=== PATIENT | male | born 1975 | race Caucasian/White ===

== ENCOUNTER 2023-12-27 10:09 | Outpatient (AMB) | payer OTHER, SELFPAY ==
--- NOTE | 2023-12-27 10:11 | A.OFFPC_ITS ---
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 Jack Operator Required: No Allergies No Known Allergies Allergy (Verified 12/27/23 10:15) Medication List - Last Reconciled 12/27/23 by Alpesh Reed MD fluoxetine 20 mg PO DAILY lactobacillus combination no.4 (Probiotic) 3,000 mmu cells PO DAILY lamotrigine 200 mg PO DAILY Tobacco use date assessed: 12/27/23 Dental Screening Dental Screen Date: 12/27/23 Did you have a dental visit in the last 12 months?: Yes Did you have a dental problem in the last 6 months where you did not have access to dental care?: No Was dental information given to patient?: Patient has dentist HPI Re-Establish Care last seen 2018 ([facility]) HPI Details 48-year-old male with a history of recur rent depression coming in for the 1st time. Patient was last seen more than a couple of years ago. 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 no stopping of work while chest pain - gerd problem [facility] Medical History (Updated 12/27/23 @ 10:44 by Alpesh Reed MD) Polysubstance abuse Surgical History (Updated 12/27/23 @ 10:31 by Alpesh Reed MD) Left inguinal hernia Family History (Updated 12/27/23 @ 10:36 by Alpesh Reed MD) Maternal Grandfather Esophageal cancer Social History (Updated 12/27/23 @ 10:40 by Alpesh Reed MD) Housing: House Alcohol intake: current Comment: 3x a year 1 glass Patient Tobacco Use Status: Former Tobacco user Tobacco use type: Cigarette Years Smoked: 10 years 2009 no recreational drugs e-Cigarette/Vaping Use: Never Used service: No Current occupational status: employed Current occupation: Cognitive needs: No Hearing needs: No Vision needs: No Questionnaire PHQ-9 Over the last 2 weeks, how often have you been bothered by any of the following problems? 1. Little interest or pleasure in doing things: several days 2. Feeling down, depressed, or hopeless: more than half the days 3. Trouble falling or staying asleep, or sleeping too much: not at all 4. Feeling tired or having little energy: several days 5. Poor appetite or overeating: more than half the days 6. Feeling bad about yourself - or that you are a failure or have let yourself or your family down: not at all 7. Trouble concentrating on things, such as reading the newspaper or watching television: several days 8. Moving or speaking so slowly that other people could have noticed. Or the opposite - being so fidgety or restless that you have been moving around a lot more than usual: not at all 9. Thoughts that you would be better off or of hurting yourself in some way: not at all Total score: 7 Depression Screening Interpretation: Positive Depression Screening Done: Yes 34054 - PHQ-9 Billing: Yes Source: Developed by Drs. Gavin Luna, Lindy Burkett, Moose Bhatt and colleagues, with an educational noa from [employer]. Thrive Questionnaire Date Thrive assessed: 12/27/23 I am a: Patient What is your living situation today?: I have a steady place to live Within the past 12 months, did the food you bought not last and you didn't have the money to get more?: Never true Within the past 12 months, did you worry whether your food would run out before you got money to buy more?: Never true Do you have trouble paying for medicines?: No Do you have trouble getting transportation to medical appointments?: No Do you have trouble paying your heating and electricity bill?: No Do you have trouble taking care of your child, family member or friend?: No Do you have trouble with day-to-day activities such as bathing, preparing meals, shopping, managing finances, etc.?: No Are you currently unemployed and looking for a job?: No Are you interested in more education?: No Please select the resources that you would like help with: None Currently or been in a relationship where the following occur: no concerns reported THRIVE Score: 0 AUDIT C Alcohol Use Questionnaire (AUDIT-C) 1. How often do you have a drink containing alcohol?: Monthly or less 2. How many drinks containing alcohol do you have on a typical day when you are drinking?: 1 or 2 3. How often do you have six or more drinks on one occasion?: Never Total Score: 1 LUX-7 AMB Questionnaire LUX-7 Date LUX - 7 assessed: 12/27/23 Feeling nervous, anxious, or on edge: 0 = Not at all Not being able to stop or control worryin = Not at all Worrying too much about different things: 0 = Not at all Trouble relaxin = Not at all Being so restless that it is hard to sit still: 0 = Not at all Becoming easily annoyed or irritable: 0 = Not at all Feeling afraid as if something awful might happen: 0 = Not at all Total LUX-7 score (0-4 normal; 5-9 mild; 10-14 moderate; 15-21 severe): 0 Source: Developed by Drs. Gavin Luna, Lindy Burkett, Moose Bhatt and colleagues, with an educational noa from [employer]. Physical exam (Primary Care) Vital Signs: Last Vital Signs Pulse 82 12/27/23 10:12 BP 110/78 12/27/23 10:12 Pulse Ox 99 12/27/23 10:12 Oxygen Delivery Method Room Air 12/27/23 10:12 BMI result Body Mass Index 22.0 Tobacco/Smoking Status: Tobacco use Status Tobacco use date assessed 12/27/23 12/27/23 10:13 Patient Tobacco Use Status Former Tobacco user 12/27/23 10:22 Tobacco use type Cigarette 12/27/23 10:22 e-Cigarette/Vaping Use Never Used 12/27/23 10:22 PHQ-9: PHQ-9 Score PHQ-9: Total score 7 12/27/23 10:22 Depression Screening Interpretation: Positive Thrive Assessment: Date of Thrive Assessment Date Thrive assessed 12/27/23 12/27/23 10:13 Currently or been in a relationship where the following occur: no concerns reported Const General: alert; No acute distress Eyes Conjunctivae: conjunctivae normal Resp Auscultation: clear to auscultation bilaterally Cardio Rate: regular rate Rhythm: regular rhythm GI Inspection: Yes normal to inspection Extrem General: Yes normal to inspection and No edema Assessment and Plan Assessment & Plan (1) Recurrent major depression: Code(s): F33.9 - Major depressive disorder, recurrent, unspecified (2) GERD (gastroesophageal reflux disease): Code(s): K21.9 - Gastro-esophageal reflux disease without esophagitis (3) Left inguinal hernia: Comment: With repair Code(s): K40.90 - Unilateral inguinal hernia, without obstruction or gangrene, not specified as recurrent (4) Colon cancer screening: Code(s): Z12.11 - Encounter for screening for malignant neoplasm of colon (5) Vision changes: Code(s): H53.9 - Unspecified visual disturbance (6) Palpitations: Code(s): R00.2 - Palpitations Orders: Orders Complete Blood Count Auto Diff Today R00.2 - Palpitations Free T4 (Free Thyroxine) Today R00.2 - Palpitations Lipid Panel Today E78.00 - Pure hypercholesterolemia, unspecified, R00.2 - Palpitations Vitamin B12 and Folate Today R00.2 - Palpitations ECG 12 lead EKG Today R00.2 - Palpitations XR chest 2V Today R00.2 - Palpitations Comprehensive Met. Panel Today R00.2 - Palpitations Thyroid Stimulating Hormone Today R00.2 - Palpitations Referrals Gastroenterology Referral K21.9 - Gastro-esophageal reflux disease without esophagitis, Z12.11 - Encounter for screening for malignant neoplasm of colon Ophthalmology Referral H53.9 - Unspecified visual disturbance Medications: New omeprazole 20 mg PO DAILY 30 caps 1RF K21.9 - Gastro-esophageal reflux disease without esophagitis Coding Level of Care Code New Pt Level 4 (95093) Diagnoses Recurrent major depression F33.9 GERD (gastroesophageal reflux disease) K21.9 Left inguinal hernia K40.90 Colon cancer screening Z12.11 Vision changes H53.9 Palpitations R00.2
[2023-12-27 10:12] VITALS: BP 110/78; PULSE 82; O2SAT 99; BMI 22.0
== END 2023-12-27 10:56 | disposition home or self-care (01) ==
PROVIDERS: PCP Internal Medicine; Visit Provider Internal Medicine
DX: F33.9 Major depressive disorder, recurrent, unspecified (principal); K21.9 Gastro-esophageal reflux disease without esophagitis; K40.90 Unilateral inguinal hernia, without obstruction or gangrene, not specified as recurrent; Z12.11 Encounter for screening for malignant neoplasm of colon; R00.2 Palpitations; Z01.00 Encounter for examination of eyes and vision without abnormal findings
CPT/HCPCS: 99204

== ENCOUNTER 2024-06-03 08:35 | Outpatient (REF) | payer OTHER, SELFPAY ==
--- NOTE | 2024-06-03 08:39 | ECG_ITS ---
Test Reason : R00.2 Blood Pressure : / mmHG Vent. Rate : 082 BPM Atrial Rate : 082 BPM P-R Int : 150 ms QRS Dur : 104 ms QT Int : 350 ms P-R-T Axes : 079 -53 052 degrees QTc Int : 408 ms Normal sinus rhythm Incomplete right bundle branch block Left anterior fascicular block Possible Anterior infarct , age undetermined Abnormal ECG No previous ECGs available Referred By: Alpesh Reed Electronically Signed By:JAMAL DE LA PAZ MD
[2024-06-03 08:59] LABS: MANUAL DIFF FLAG NO
[2024-06-03 09:25] LABS: Basophils Absolute Auto 0.1 X10*3/uL (0.0-0.2); Basophils Percent Auto 1.4 % (0-2); Eosinophils Absolute Auto 0.1 X10*3/uL (0.0-0.4); Hematocrit 44.6 % (42.0-52.0); Hemoglobin 15.8 g/dl (14.0-18.0); Imm Gran Abs Auto 0.02 X10*3/uL (0.00-0.03); Imm Gran Pct Auto 0.4 % (0.0-0.4); Lymphocytes Absolute Auto 1.4 X10*3/uL (1.2-4.9); Lymphocytes Percent Auto 24.2 % (20-40); Mean Corpuscular HGB Conc 35.4 g/dl (31.0-36.0); Mean Corpuscular Hemoglobin 32.2 pg (27.0-33.0); Mean Corpuscular Volume 90.8 fL (80.0-98.0); Mean Platelet Volume 9.1 fL (9.4-12.4); Monocytes Absolute Auto 0.4 X10*3/uL (0.1-1.2); Monocytes Percent Auto 7.2 % (2-11); Neutrophils Absolute Auto 3.6 x10*3/uL (2.0-8.3); Neutrophils Percent Auto 64.8 % (45-73); Platelet Count 302 X10*3/uL (160-400); Red Blood Count 4.91 X10*6/uL (4.60-5.80); Red Cell Distribution Width 12.4 % (11.0-16.0); White Blood Count 5.6 X10*3/uL (4.8-10.8)
[2024-06-03 09:58] LABS: Alanine Aminotransferase 31 U/L (0-40); Albumin Level 4.9 g/dL (3.5-5.0); Alkaline Phosphatase 77 U/L (39-117); Anion Gap 15 (12-20); Aspartate Amino Transferase 33 U/L (5-37); Bilirubin Total 0.7 mg/dL (0.0-1.0); Blood Urea Nitrogen 10 mg/dL (9-16); Calcium 10.1 mg/dL (8.4-10.2); Carbon Dioxide 29 mmol/L (22-29); Chloride 104 mmol/L (96-108); Cholesterol 194 mg/dL (<200); Estimated Glomerular Filt Rate > 60; Glucose Random 94 mg/dL (60-115); HDL Cholesterol 72 mg/dL (>40); LDL Cholesterol Calculated 111 mg/dL (<100); Potassium 4.8 mmol/L (3.3-5.1); Sodium 143 mmol/L (135-145); Total Protein 7.4 g/dL (6.5-8.0); Triglycerides 57 mg/dL (<150)
[2024-06-03 10:42] LABS: Free T4 (Free Thyroxine) 1.18 ng/dL (0.71-1.85); Thyroid Stimulating Hormone 0.91 uIU/mL (0.32-4.0)
[2024-06-03 10:45] LABS: Folate 7.5 ng/mL (> or = 4.0); Vitamin B12 391 pg/mL (200-900)
== END 2024-06-03 08:36 | disposition home or self-care (01) ==
LOC: HO.LAB 08:35
PROVIDERS: PCP Internal Medicine; Visit Provider Internal Medicine
DX: R00.2 Palpitations (principal); E78.00 Pure hypercholesterolemia, unspecified
CPT/HCPCS: 36415; 71046; 80053; 80061; 82607; 82746; 84439; 84443; 85025; 93005

== ENCOUNTER → 2024-06-03 08:39 | Outpatient (BNV) | payer OTHER, SELFPAY | PROVIDERS: PCP Internal Medicine; Visit Provider Internal Medicine Cardiovascular Disease | DX: R94.31 Abnormal electrocardiogram [ECG] [EKG] (principal) | CPT/HCPCS: 93010 ==

== ENCOUNTER 2024-06-04 11:04 | Outpatient (AMB) | payer OTHER, SELFPAY ==
[2024-06-04 11:25] VITALS: BP 132/70; PULSE 80; O2SAT 98; BMI 21.6
--- NOTE | 2024-06-04 11:25 | A.OFFPC_ITS ---
Vital Signs 06/04/24 11:25 Height 5 ft 7 in Weight 62.596 kg BMI 21.6 BP 132/70 Blood Pressure Location Lt brachial Position Sitting Pulse 80 Pulse Source Pulse Oximeter Pulse Oximetry (%) 98 Oxygen Delivery Method Room Air Intake Visit Reasons: PE Intake Note: pt requesting omeprazole refill Bulk System Operator Required: No Accompanied by: Self / Same As Patient Allergies No Known Allergies Allergy (Verified 06/04/24 11:25) Medication List - Last Reconciled 06/04/24 by Alpesh Reed MD fluoxetine 20 mg PO DAILY lactobacillus combination no.4 (Probiotic) 3,000 mmu cells PO DAILY lamotrigine 200 mg PO DAILY omeprazole 20 mg PO DAILY Tobacco use date assessed: 12/27/23 Dental Screening Dental Screen Date: 12/27/23 HPI PE HPI Details 49-year-old male with depression GERD co bird in for physical exam last seen in November 2023. occ dizzy PFSH Medical History (Updated 06/04/24 @ 12:00 by Alpesh Reed MD) Polysubstance abuse Surgical History (Updated 12/27/23 @ 10:31 by Alpesh Reed MD) Left inguinal hernia Family History (Updated 12/27/23 @ 10:36 by Alpesh Reed MD) Maternal Grandfather Esophageal cancer Social History (Updated 06/04/24 @ 12:01 by Alpesh Reed MD) Housing: House Alcohol intake: current Comment: 3x a year 1 glass, 2x a year 1 drink Patient Tobacco Use Status: Former Tobacco user Tobacco use type: Cigarette Years Smoked: 10 years 2009 no recreational drugs e-Cigarette/Vaping Use: Never Used service: No Current occupational status: employed Current occupation: Cognitive needs: No Hearing needs: No Vision needs: No Questionnaire PHQ-9 Over the last 2 weeks, how often have you been bothered by any of the following problems? 1. Little interest or pleasure in doing things: nearly every day 2. Feeling down, depressed, or hopeless: nearly every day 3. Trouble falling or staying asleep, or sleeping too much: nearly every day 4. Feeling tired or having little energy: more than half the days 5. Poor appetite or overeating: nearly every day 6. Feeling bad about yourself - or that you are a failure or have let yourself or your family down: more than half the days 7. Trouble concentrating on things, such as reading the newspaper or watching television: nearly every day 8. Moving or speaking so slowly that other people could have noticed. Or the opposite - being so fidgety or restless that you have been moving around a lot more than usual: not at all 9. Thoughts that you would be better off or of hurting yourself in some way: not at all Total score: 19 Source: Developed by Drs. Gavin Luna, Lindy Burkett, Moose Bhatt and colleagues, with an educational noa from [employer]. Thrive Questionnaire Date Thrive assessed: 12/27/23 I am a: Patient What is your living situation today?: I have a steady place to live Within the past 12 months, did the food you bought not last and you didn't have the money to get more?: Never true Within the past 12 months, did you worry whether your food would run out before you got money to buy more?: Never true Do you have trouble paying for medicines?: No Do you have trouble getting transportation to medical appointments?: No Do you have trouble paying your heating and electricity bill?: No Do you have trouble taking care of your child, family member or friend?: No Do you have trouble with day-to-day activities such as bathing, preparing meals, shopping, managing finances, etc.?: No Are you currently unemployed and looking for a job?: No Are you interested in more education?: No Please select the resources that you would like help with: None Currently or been in a relationship where the following occur: No concerns reported THRIVE Score: 0 AUDIT C Alcohol Use Questionnaire (AUDIT-C) 1. How often do you have a drink containing alcohol?: Monthly or less 2. How many drinks containing alcohol do you have on a typical day when you are drinking?: 1 or 2 3. How often do you have six or more drinks on one occasion?: Never Total Score: 1 LUX-7 AMB Questionnaire LUX-7 Date LUX - 7 assessed: 12/27/23 Feeling nervous, anxious, or on edge: 3 = Nearly every day Not being able to stop or control worryin = Nearly every day Worrying too much about different things: 3 = Nearly every day Trouble relaxin = Nearly every day Being so restless that it is hard to sit still: 1 = Several days Becoming easily annoyed or irritable: 3 = Nearly every day Feeling afraid as if something awful might happen: 3 = Nearly every day Total LUX-7 score (0-4 normal; 5-9 mild; 10-14 moderate; 15-21 severe): 19 Source: Developed by Drs. Gavin Luna, Lindy Burkett, Moose Bhatt and colleagues, with an educational noa from [employer]. Review of Systems Const Denies poor appetite and Denies weakness Eyes Denies no additional complaints ENT Reports Normal hearing present, Denies dizziness, Denies nasal congestion, Denies tinnitus and Denies sore throat Card Denies chest pain, Denies syncope, Denies rapid heart rate and Denies dyspnea Resp Denies cough and Denies dyspnea GI Denies change in stool character, Reports constipation, Denies diarrhea, Denies nausea and Denies vomiting Denies dysuria and Denies urinary frequency Neuro Reports Normal hearing present, Denies confusion, Denies dizziness, Denies syncope and Denies weakness Psych Denies confusion Physical exam (Primary Care) Vital Signs: Last Vital Signs Pulse 80 06/04/24 11:25 BP 132/70 06/04/24 11:25 Pulse Ox 98 06/04/24 11:25 Oxygen Delivery Method Room Air 06/04/24 11:25 BMI result Body Mass Index 21.6 Tobacco/Smoking Status: Tobacco use Status Tobacco use date assessed 12/27/23 06/04/24 11:26 Patient Tobacco Use Status Former Tobacco user 06/04/24 12:01 Tobacco use type Cigarette 06/04/24 12:01 e-Cigarette/Vaping Use Never Used 06/04/24 12:01 PHQ-9: PHQ-9 Score PHQ-9: Total score 19 06/04/24 11:58 Thrive Assessment: Date of Thrive Assessment Date Thrive assessed 12/27/23 06/04/24 11:26 Currently or been in a relationship where the following occur: No concerns reported Const General: No confusion Orientation/consciousness: No confusion HENMT Head: Yes normocephalic Ears: external ears normal and TM's normal bilaterally Face and sinus: Yes normal facial exam Mouth: moist mucous membranes Throat: Yes tonsils normal Eyes Conjunctivae: conjunctivae normal Pupils: Equal, round and reactive pupils present and Pupil accommodation reflex normal Direct Ophthalmoscopy: normal light reflex Neck Neck: No lymphadenopathy Thyroid: Thyroid normal Chest Chest palpation & inspection: normal inspection of the chest Resp Effort & Inspection: normal respiratory effort and no audible wheezes Auscultation: clear to auscultation bilaterally Cardio Rate: regular rate Rhythm: regular rhythm Peripheral pulses: radial pulses present and dorsalis pedis present GI Other: guaaic negative prostate n Inspection: Yes normal to inspection Palpation (GI): no masses Auscultation: normal bowel sounds and normoactive bowel sounds Male General Exam: Yes normal external exam Skin General skin exam: no rashes or lesions noted Rashes: no rashes Neuro General: No confusion Cranial nerves: Yes Equal, round and reactive pupils present and Yes Normal hearing present Cognition (Neuro): normal cognition Gait exam (Neuro): Normal gait present Motor exam (neuro): 5/5 motor strength present throughout Deep tendon reflexes (DTR's): Right brachioradialis reflex intensity grade: 2+, Left brachioradialis reflex intensity grade: 2+, Right patellar reflex intensity grade: 2+ and Left patellar reflex intensity grade: 2+ Extrem General: Yes normal to inspection and No edema Office Procedures Flu Questionnaire Does the patient have a severe egg allergy?: No Does the patient have severe life threatening allergies?: No Does the patient have a fever or illness today?: No Has the patient ever had Guillain-T[place] Syndrome?: No Has the patient ever had any past reaction to a flu shot?: No Immunizations Fluarix Triv [id number] (PF) 45 mcg (15 mcg x 3)/0.5 mL IM syringe Performing Provider: Alpesh Reed MD [facility] Administered by: Elmira Patel CMA on 06/04/24 12:18 Dose Route Admin Location Dispensed Lot Number Expiration Date [facility] Community Relations Assistant 0.5 mL IM Left Deltoid 0.5 mL [id number] 01/25/25 [id number] [employer] VIS Given Date VIS Provided VIS Publication Date 06/04/24 Single Vaccine 21 Eligibility Eligibility Date Funding Source Not [place] Eligible 06/04/24 Private Coding Level of Care Code Est Pt Prev Care 40-64y(40309) Diagnoses Annual physical exam Z00.00 Moderate episode of recurrent major depressive disorder F33.1 Active/Remission status: currently active Major depression episode severity: moderate Gastroesophageal reflux disease without esophagitis K21.9 Esophagitis presence: without esophagitis Assessment & Plan Assessment & Plan (1) Annual physical exam: Code(s): Z00.00 - Encounter for general adult medical examination without abnormal findings Category: Medical Plan: Patient is advised to eat healthy, keep well hydrated, keep active and have adequate sleep. (2) Recurrent major depression: Comment: Private Psychiatry and counselling Code(s): F33.9 - Major depressive disorder, recurrent, unspecified Category: Medical Qualifiers: Active/Remission status: currently active Major depression episode severity: moderate Qualified Code(s): F33.1 - Major depressive disorder, recurrent, moderate Plan: Continue with present medication (3) GERD (gastroesophageal reflux disease): Code(s): K21.9 - Gastro-esophageal reflux disease without esophagitis Category: Medical Qualifiers: Esophagitis presence: without esophagitis Qualified Code(s): K21.9 - Gastro-esophageal reflux disease without esophagitis Plan: Avoid the foods that causes that usually spicy foods, tomato products, juices, coffee, soda and foods that your sensitive to. After eating do not lie down, allow 3-4 hours before in lie down. And keep the head of bed above 30 degrees to avoid the acid from going up. Orders: Orders Influenza [id number] Immunization Today Z23 - Encounter for immunization Medications: New Fluarix Triv [id number] (PF) (flu vacc [id number] 6mos up(PF)) 0.5 mL IM ONCE 0.5 mL 0RF NS Z23 - Encounter for immunization
== END 2024-06-04 12:23 | disposition home or self-care (01) ==
LOC: HO.HMCH 11:05
PROVIDERS: PCP Internal Medicine; Visit Provider Internal Medicine
DX: Z00.00 Encounter for general adult medical examination without abnormal findings (principal); F33.1 Major depressive disorder, recurrent, moderate; K21.9 Gastro-esophageal reflux disease without esophagitis; Z23 Encounter for immunization

== ENCOUNTER → 2024-06-04 11:04 | Outpatient (BNVA) | payer OTHER, SELFPAY | PROVIDERS: PCP Internal Medicine; Visit Provider Internal Medicine | DX: Z00.00 Encounter for general adult medical examination without abnormal findings (principal); F33.1 Major depressive disorder, recurrent, moderate; K21.9 Gastro-esophageal reflux disease without esophagitis; Z79.899 Other long term (current) drug therapy; Z23 Encounter for immunization | CPT/HCPCS: 90471; 90656; 96127 ==

== ENCOUNTER 2024-10-07 09:53 | Outpatient (REF) | payer OTHER, SELFPAY ==
[2024-10-07 11:43] LABS: Hematocrit 44.1 % (42.0-52.0); Hemoglobin 15.3 g/dl (14.0-18.0); Mean Corpuscular HGB Conc 34.7 g/dl (31.0-36.0); Mean Corpuscular Hemoglobin 31.5 pg (27.0-33.0); Mean Corpuscular Volume 90.7 fL (80.0-98.0); Platelet Count 343 X10*3/uL (160-400); Red Blood Count 4.86 X10*6/uL (4.60-5.80); Red Cell Distribution Width 12.4 % (11.0-16.0); White Blood Count 7.2 X10*3/uL (4.8-10.8)
[2024-10-07 12:35] LABS: Hepatitis A Antibody IgG Nonreactive (Nonreactive); ~Hepatitis A Antibody IgG 0.14 S/CO (0.00-0.99)
[2024-10-07 12:39] LABS: Alanine Aminotransferase 27 U/L (0-40); Albumin Level 4.6 g/dL (3.5-5.0); Alkaline Phosphatase 82 U/L (39-117); Aspartate Amino Transferase 30 U/L (5-37); Bilirubin Direct 0.2 mg/dL (0.0-0.5); Bilirubin Total 0.8 mg/dL (0.0-1.0); Total Protein 7.5 g/dL (6.5-8.0)
[2024-10-07 13:09] LABS: HBS Num1 1.63 mIU/mL (0-7.99); HBc Num1 0.04 S/CO (0.00-0.79); HBsAGNum1 0.23 S/CO (0.00-0.99); Hepatitis B Core Antibody Nonreactive (Nonreactive); Hepatitis B Surface Antigen Negative (Negative); ~HepC Num1 0.11 S/CO (0.00-0.79); ~Hepatitis B Surface Antibody NONREACTIVE (Nonreactive); ~Hepatitis C Antibody Nonreactive (Nonreactive)
== END 2024-10-07 09:54 | disposition home or self-care (01) ==
LOC: HO.LAB 09:53
PROVIDERS: PCP Internal Medicine; Visit Provider Internal Medicine
DX: R10.9 Unspecified abdominal pain (principal)
CPT/HCPCS: 36415; 80076; 85027; 86704; 86706; 86708; 86803; 87340

== ENCOUNTER 2024-10-07 09:53 | Outpatient (AMB) | payer OTHER, SELFPAY ==
[2024-10-07 09:55] VITALS: BP 142/86; PULSE 100; BMI 22.1
--- NOTE | 2024-10-07 09:55 | MHC.OFFVIS ---
Vital Signs 10/07/24 09:55 Height 5 ft 7 in Weight 141 lb 1.533 oz BMI 22.1 BP 142/86 H Blood Pressure Location Lt brachial Position Sitting Pulse 100 Intake Visit Reasons: Gerd Intake Note: Evangelista presents in the office as a new patient for GERD. CC: He states that he has been having a lot of abdominal discomfort with acid reflux. Denies any irregular bowel movements. Break Up Worker Required: No Allergies No Known Allergies Allergy (Verified 10/07/24 09:55) HPI Comments Details: 49 y.o M referred by PCP for abd pain and CRC screening. Reports abd pain is kika-umbilical, x 6 months. Starts typically within 2 hours after meals, feels like a pressure, gnawing sensation. Sometimes radiates to R back. Sometimes with bloating. Not assoc with N,V,D. No difficulty swallowing. No pyrosis. Tried omeprazole for this x 4 months. Is helping. Former smoker - quit 2009. No etOH Taking ibuprofen these days due to recent dental work but prior to this wasnt taking any NSAIDs. Remote opiate abuse hx. Maternal grandfather esophageal ca in his 80. No fam hx of stomach or colon ca. [facility] Medical History Polysubstance abuse Surgical History History of esophagogastroduodenoscopy (EGD) Hx of colonoscopy Left inguinal hernia Family History Maternal Grandfather Esophageal cancer Social History Housing: House Alcohol intake: current Comment: 3x a year 1 glass, 2x a year 1 drink Patient Tobacco Use Status: Former Tobacco user Tobacco use type: Cigarette Years Smoked: 10 years 2009 no recreational drugs e-Cigarette/Vaping Use: Never Used service: No Current occupational status: employed Current occupation: Cognitive needs: No Hearing needs: No Vision needs: No Review of Systems Const All systems reviewed & are unremarkable except as noted in HPI and below Physical Exam Vital Signs: Last Vital Signs Pulse 100 10/07/24 09:55 BP 142/86 H 10/07/24 09:55 BMI result Body Mass Index 22.1 No apparent distress Nonicteric Abdomen soft, nondistended Alert and oriented x3, normal gait Assessment & Plan Assessment & Plan (1) Abdominal pain: Code(s): R10.9 - Unspecified abdominal pain Category: Medical (2) GERD (gastroesophageal reflux disease): Code(s): K21.9 - Gastro-esophageal reflux disease without esophagitis Category: Medical Qualifiers: Esophagitis presence: without esophagitis Qualified Code(s): K21.9 - Gastro-esophageal reflux disease without esophagitis (3) Colon cancer screening: Code(s): Z12.11 - Encounter for screening for malignant neoplasm of colon Category: Medical (4) Encounter for hepatitis C screening test for low risk patient: Code(s): Z11.59 - Encounter for screening for other viral diseases Category: Medical Plan 1. abd pain: Ddx include GERD, PUD, gastritis, symptomatic gallstones, celiac. Plan: - Cont omeprazole 20 once daily - Barium swallow - US Abd - Labs ordered - EGD to be booked 2. CRC screening: Due. Will be booked at the same time as EGD. Plan: - Haslet to be booked - PEG prep given, instructions reviewed 3. Screening for chronic HBV and HCV ordered Follow up after scopes Orders: Orders Complete Blood Count no Diff Today R10.9 - Unspecified abdominal pain Liver Panel Today R10.9 - Unspecified abdominal pain US abdomen complete Today R10.9 - Unspecified abdominal pain Hepatitis B Core Antibody Today Z11.59 - Encounter for screening for other viral diseases Hepatitis B Surface Antigen Today Z11.59 - Encounter for screening for other viral diseases Hepatitis B Surface Antibody Today Z11.59 - Encounter for screening for other viral diseases FL barium swallow Today R10.9 - Unspecified abdominal pain Hepatitis A IgG Today Z11.59 - Encounter for screening for other viral diseases Hepatitis C Antibody Today Z11.59 - Encounter for screening for other viral diseases Medications: New peg 3350-electrolytes 236-22.74-6.74 -5.86 gram (Golytely) as per split prep instructions, until fecal effluent is clear 240 mL PO Q10M 4,000 mL 0RF colonoscopy Refilled omeprazole 20 mg PO DAILY 90 caps 0RF K21.9 - Gastro-esophageal reflux disease without esophagitis Coding Level of Care Code New Pt Level 4 (05029) Diagnoses Abdominal pain R10.9 Gastroesophageal reflux disease without esophagitis K21.9 Esophagitis presence: without esophagitis Colon cancer screening Z12.11 Encounter for hepatitis C screening test for low risk patient Z11.59
== END 2024-10-07 11:00 | disposition home or self-care (01) ==
LOC: HO.HGI 09:54
PROVIDERS: PCP Internal Medicine; Visit Provider Internal Medicine
DX: K21.9 Gastro-esophageal reflux disease without esophagitis (principal); Z12.11 Encounter for screening for malignant neoplasm of colon
CPT/HCPCS: 99204

== ENCOUNTER 2024-10-08 08:49 | Outpatient (REF) | payer OTHER, SELFPAY ==
--- NOTE | ~2024-10-08 | US_ITS ---
EXAMINATION: US ABDOMEN HISTORY: R10.9 - Unspecified abdominal pain TECHNIQUE: Real-time grayscale ultrasound imaging of the abdomen was performed and images were reviewed. COMPARISON: Comparison is made with the prior examination dated 1024. FINDINGS: Liver: The right lobe of the liver measures 16.0 cm in size. The left lobe of the liver measures 8.0 cm in size. The liver demonstrates normal homogeneous echotexture. No focal mass or intrahepatic biliary ductal dilatation is identified. There is normal hepatopedal flow in the portal vein. Gallbladder and biliary tree: The gallbladder is unremarkable, without evidence of calculi, wall thickening, or pericholecystic fluid. There is no sonographic Orozco sign. The common bile duct is normal in caliber measuring 3 mm. Kidneys: The right kidney measures 10.5 cm in length. The left kidney measures 10.4 cm in length. The kidneys are unremarkable, without evidence of masses, hydronephrosis, or calculi. Pancreas: The pancreatic head, neck, and body are unremarkable. The pancreatic tail is obscured by bowel gas. Spleen: The spleen is normal in size and contour, measuring 8.9 cm in length. Abdominal aorta and inferior vena cava: The visualized portions of the abdominal aorta and inferior vena cava are normal in caliber. There is no free fluid in the abdomen. US/US abdomen complete IMPRESSION: Unremarkable abdominal ultrasound. Electronically signed by: Gavin Callahan MD 10/08/2024 09:47 AM EDT
== END 2024-10-08 08:50 | disposition home or self-care (01) ==
LOC: HO.US 08:49
PROVIDERS: PCP Internal Medicine; Visit Provider Internal Medicine
DX: R10.9 Unspecified abdominal pain (principal)
CPT/HCPCS: 76700

== ENCOUNTER → 2024-10-08 08:51 | Outpatient (BNV) | payer OTHER, SELFPAY | PROVIDERS: PCP Internal Medicine; Visit Provider Radiology Diagnostic Radiology | DX: R10.9 Unspecified abdominal pain (principal) | CPT/HCPCS: 76700 ==

== ENCOUNTER 2025-01-01 08:34 | Outpatient (REF) | payer OTHER, SELFPAY ==
--- NOTE | ~2025-01-01 | FL_ITS ---
EXAMINATION: XR BARIUM SWALLOW CLINICAL INFORMATION: Abdominal pain COMPARISON: None available. TECHNIQUE: Routine upright barium swallow was performed with thick barium and barium coated saltine crackers. Oral thin barium was administered in prone lying position. FINDINGS: Following oral administration of thick barium there is normal propagation bolus from the oral cavity through the pharynx, esophagus into stomach without obstruction, narrowing, laryngeal penetration or aspiration. No retention of barium in the valleculae or piriform sinuses. On oral administration of saltine crackers coated barium there is normal propagation of bolus from the oral cavity through the pharynx, esophagus into stomach. There is transient holding of solid food in the mid and distal esophagus likely secondary to decreased peristalsis or dryness. Subsequently solid food cleared following oral administration thin barium. On placing patient prone lying and oral administration of thin barium there is good distention of esophagus without obstruction or narrowing. There is mild gastroesophageal reflux without hiatal hernia. FLUOROSCOPY TIME: Mild gastroesophageal reflux without hiatal hernia DOSE AREA PRODUCT: 1176 uGy-m2 (microgray-meter squared) FL/FL barium swallow IMPRESSION: Mild gastroesophageal reflux without hiatal hernia. Electronically signed by: Kilo Robins MD 01/01/2025 01:58 PM EDT
== END 2025-01-01 08:35 | disposition home or self-care (01) ==
LOC: HO.XRAY 08:34
PROVIDERS: PCP Internal Medicine; Visit Provider Internal Medicine
DX: R10.9 Unspecified abdominal pain (principal)
CPT/HCPCS: 74220

== ENCOUNTER → 2025-01-01 08:36 | Outpatient (BNV) | payer OTHER, SELFPAY | PROVIDERS: PCP Internal Medicine; Visit Provider Radiology Diagnostic Radiology | DX: R10.9 Unspecified abdominal pain (principal) | CPT/HCPCS: 74220 ==